=== PATIENT | female | born 1995 | race Caucasian/White ===

== ENCOUNTER 2017-04-27 15:43 | Emergency (ER) | payer OTHER ==
[~2017-04-27] VITALS: Wt 81.2 kg
[~2017-04-27 15:43] MED LIST: ANTIVERT12.5 MG PO; FLAGYL500 MG PO; FLONASE ALLERG9.9 ML NAS; MOTRIN800 MG PO; NKHM; PERCOCET 325 MG1 TA2 PO; PREDNISONE10 MG PO; ROBITUSSIN AC 110 ML PO; VIBRAMYCIN100 MG PO
== END 2017-04-27 16:52 | disposition home or self-care (01) ==
LOC: ED 15:43
DX: O26.893 Other specified pregnancy related conditions, third trimester (principal); M54.6 Pain in thoracic spine; Z90.49 Acquired absence of other specified parts of digestive tract; Z3A.33 33 weeks gestation of pregnancy

== ENCOUNTER → 2018-12-15 | Outpatient (CLI) | payer OTHER ==
[~2018-12-15] MED LIST changes: +REGLAN10 M1 PO
[2018-12-15 16:01] LABS: BASO % 0.4 % (0.0-1.0); EOS # 0.2 10*3/uL (0.0-0.4); EOS % 3.2 % (1.0-4.0); HEMATOCRIT 38.5 % (37.0-47.0); HEMOGLOBIN 12.9 g/dl (12.0-16.0); LYMPH # 2.4 10*3/uL (1.3-4.4); LYMPH % 32.2 % (27.0-41.0); MEAN CELL VOLUME 90.8 fl (81.0-99.0); MEAN CORPUSCULAR HGB 30.4 pg (27.0-31.0); MEAN CORPUSCULAR HGB CONC 33.5 g/dl (33.0-37.0); MEAN PLATELET VOLUME 9.9 fl (9.6-12.3); MONO # 0.6 10*3/uL (0.1-1.0); MONO % 8.6 % (3.0-9.0); NEUT % 55.3 % (47.0-73.0); PLATELET COUNT AUTOMATED 255 10*3/uL (130-400); RED BLOOD COUNT 4.24 10*6/uL (4.10-5.10); RED CELL DISTRI WIDTH 12.8 % (0-14.5); WHITE BLOOD COUNT 7.3 10*3/uL (4.8-10.8)
[2018-12-15 16:24] LABS: FREE T4 1.04 ng/dl (0.76-1.46)
[2018-12-16 08:11] LABS: RHEUMATOID ARTHRITIS FACTOR <10.0 IU/mL (0.0-13.9)
[2018-12-16 22:08] LABS: CCP ANTIBODIES IGG/IGA 5 units (0-19)
== END | disposition home or self-care (01) ==
LOC: LAB 14:38
PROVIDERS: Internal Medicine
DX: R53.83 Other fatigue (principal); R68.89 Other general symptoms and signs

== ENCOUNTER 2023-08-28 13:50 | Emergency (ER) | payer SELFPAY ==
[~2023-08-28] VITALS: Ht 165.1 cm; Wt 72.6 kg
[2023-08-28 15:08] LABS: BASO % 0.3 % (0.0-1.0); EOS # 0.1 10*3/uL (0.0-0.4); EOS % 0.4 % (1.0-4.0); HEMATOCRIT 36.6 % (37.0-47.0); LYMPH # 1.5 10*3/uL (1.3-4.4); LYMPH % 12.5 % (27.0-41.0); MEAN CELL VOLUME 90.6 fl (81.0-99.0); MEAN CORPUSCULAR HGB CONC 33.1 g/dl (33.0-37.0); MEAN PLATELET VOLUME 8.7 fl (9.6-12.3); MONO # 0.7 10*3/uL (0.1-1.0); MONO % 5.6 % (3.0-9.0); NEUT # 9.5 10*3/uL (2.3-7.9); NEUT % 80.9 % (47.0-73.0); PLATELET COUNT AUTOMATED 271 10*3/uL (130-400); RED BLOOD COUNT 4.04 10*6/uL (4.10-5.10); RED CELL DISTRI WIDTH 12.7 % (0-14.5); WHITE BLOOD COUNT 11.7 10*3/uL (4.8-10.8)
[2023-08-28 15:31] LABS: ALKALINE PHOSPHATASE 69 U/L (46-116); BUN 7 mg/dl (9-23); CHLORIDE 105 mmol/L (98-107); LIPASE 28 U/L (12-53); POTASSIUM 3.4 mmol/L (3.4-5.1); SGPT/ALT 9 U/L (5-49); TOTAL PROTEIN 6.7 gm/dL (6.0-8.0)
[2023-08-28 15:41] LABS: BILIRUBIN Negative (Negative); BLOOD Trace-Lysed (Negative); CLARITY Cloudy (Clear); COLOR Yellow (Yellow); GLUCOSE Negative (Negative); KETONE Trace (Negative); LEUKO ESTERASE 2+ (Negative); NITRITE Negative (Negative); PH 6.5 (4.5-8.0); UROBILINOGEN 0.2 E.U./dl (0.0-1.0)
[2023-08-28 16:16] LABS: BACTERIA 2+; RBC 0-2 rbc/hpf (0-2)
[2023-08-28] MEDS ORDERED: SEPTDS PO (16:45)
[2023-08-28] MEDS ORDERED: IBUPROFEN 800 MG TAB PO ONE (16:45)
== END 2023-08-28 17:03 | disposition home or self-care (01) ==
LOC: ED 13:50
PROVIDERS: Physician Assistant Medical
DX: N39.0 Urinary tract infection, site not specified (principal); Z90.49 Acquired absence of other specified parts of digestive tract

== ENCOUNTER 2023-12-18 09:57 | Emergency (ER) | payer SELFPAY ==
[~2023-12-18] VITALS: Ht 165.1 cm; Wt 61.2 kg
[~2023-12-18 09:57] MED LIST changes: +SEPTDS PO
[2023-12-18] MEDS ORDERED: ACETAMINOPHEN 325 MG TAB PO ONE (11:10)
[2023-12-18] MEDS ORDERED: Amoxicillin/Clavulanate Pota 875 MG TAB PO ONE (12:10)
[2023-12-18] MEDS ORDERED: AMOX-CLAV 875-1 EACH PO (12:12)
== END 2023-12-18 12:30 | disposition home or self-care (01) ==
LOC: ED 09:57
DX: K11.20 Sialoadenitis, unspecified (principal); K02.9 Dental caries, unspecified; Z90.49 Acquired absence of other specified parts of digestive tract

== ENCOUNTER 2024-09-25 12:24 | Emergency (ER) | payer OTHER, MEDICAID ==
[~2024-09-25] VITALS: Ht 165.1 cm; Wt 75.7 kg
[~2024-09-25 12:24] MED LIST changes: +AMOX-CLAV 875-1 EACH PO
[2024-09-25] MEDS ORDERED: ACETAMINOPHEN 325 MG TAB PO ONE (13:10)
== END 2024-09-25 15:06 | disposition home or self-care (01) ==
LOC: ED 12:24
DX: O9A.213 Injury, poisoning and certain other consequences of external causes complicating pregnancy, third trimester (principal); M54.50 Low back pain, unspecified; Z90.49 Acquired absence of other specified parts of digestive tract; Z3A.29 29 weeks gestation of pregnancy; W10.8XXA Fall (on) (from) other stairs and steps, initial encounter; Y93.89 Activity, other specified; Y92.89 Other specified places as the place of occurrence of the external cause; Y99.0 Civilian activity done for income or pay